=== PATIENT | female | born 1955 | race Caucasian/White ===

== ENCOUNTER 2023-04-19 12:18 | Emergency (ER) | payer MEDICARE, OTHER, SELFPAY ==
--- NOTE | ~2023-04-19 | CT_ITS ---
EXAMINATION: CT HEAD WITHOUT CONTRAST CLINICAL INFORMATION: Confusion. COMPARISON: None. TECHNIQUE: Contiguous axial imaging was performed from the skullbase to vertex without intravenous administration of contrast. This CT examination was performed using dose optimization techniques as appropriate, variously including the following: *Automated exposure control *Adjustment of mA and/or kV according to patient size (this includes techniques or standardized protocols for targeted exams where dose is matched to indication/reason for exam; i.e. extremities or head) *Use of iterative reconstruction technique DLP: 654 mGy-cm. FINDINGS: There is no evidence of acute intracranial hemorrhage or territorial infarction. No abnormal mass effect or midline shift is seen. Penny to white matter differentiation is well preserved. No extra-axial fluid collections are identified. The ventricles are normal in size. There is no abnormal attenuation within the brain parenchyma. The osseous structures and soft tissues are normal. The mastoid air cells and visualized portions of the paranasal sinuses are well aerated. CT/CT head/brain wo IV con IMPRESSION: No acute intracranial pathology.
[2023-04-19 12:29] VITALS: BP 136/75; PULSE 99; RESP 18; TEMP 35.9; O2SAT 99; BMI 27.1
--- NOTE | 2023-04-19 12:31 | ED_ITS ---
HPI - General Adult General Chief complaint: Neuro Symptoms/Deficit Stated complaint: loss of memory ? Time Seen by Provider: 04/19/23 20:54 Source: patient and other (Significant other) Mode of arrival: ambulatory Limitations: no limitations History of Present Illness HPI narrative: 67-year-old female with hypercholesterolemia, hypothyroidism presents with memory loss. Patient had confusional episode where she was unable to remember several events to out the day. She woke up in apparently in a normal state of health. She appeared to be somewhat confused as to certain events that had happened. She went for walk with her significant other. She had a conversation with a teacher she is to work with. However, she does not remember even needing this particular teacher name Eliot. She does not remember the conversation. She returned home and had memory loss related to some work that was done at the house as well. She never had any focal neurologic deficits. There is no receptive or expressive aphasia. There were no other significant symptoms. Her significant other recommended that she come to the hospital. There are several vents that took place since her period of waiting in the emergency department that she does not remember. However, per patient and her significant other, she is currently at her baseline mental status. Patient has never had symptoms like this before. The symptoms are described as severe. There is no clear relieving or exacerbating features. Related Data Allergies Allergy/AdvReac Type Severity Reaction Status Date / Time No Known Allergies Allergy Unverified 08/19/22 15:45 [No Known Allergies*] Review of Systems 2 Review of Systems: CONSTITUTIONAL: Denies weight loss, fever and chills. HEENT: Denies changes in vision and hearing. RESPIRATORY: Denies SOB and cough. CV: Denies palpitations no CP. GI: Denies abdominal pain, nausea, vomiting and diarrhea. : Denies dysuria and urinary frequency. MSK: Denies myalgia and joint pain. SKIN: Denies rash and pruritus. NEUROLOGICAL: Denies headache and syncope. PSYCHIATRIC: Denies recent changes in mood. Denies anxiety and depression. All other ROS are negative unless in HPI PMFSH Social History Social History Alcohol intake: never Smoked in Last 30 Days: No Use of substances other than those prescribed or required for medical reasons: Unable to respond Advance Directives: No Advance Directives Information Provided: No Physical Exam ED Vital Signs: Vital Signs - 24 hr 04/19/23 12:29 04/19/23 20:55 Temperature 96.6 F L 98.1 F Pulse Rate 99 71 Respiratory Rate 18 17 Blood Pressure 136/75 129/63 Pulse Oximetry 99 97 Oxygen Delivery Method Room Air BMI result Body Mass Index 27.1 GEN: Well developed, no acute distress, alert, oriented HEENT: Normocephalic, atraumatic, normal external ears, nose appears normal, no oropharyngeal edema or exudates Eyes: Normal to appearance Neck: Supple, no lymphadenopathy Respiratory: Talks in complete sentences, no respiratory distress, clear to auscultation bilaterally Cardiovascular: Regular rate and rhythm, no murmurs rubs or gallops Abdomen: Soft, nontender, nondistended, no guarding, no rebound Back: No CVA tenderness Extremities: No clubbing cyanosis or edema Neurologic: No focal neurologic deficits, cranial nerves 2-12 intact, strength is 5/5 bilaterally, no pronator drift, [id number] intact Skin: No rash Course Course Course Narrative: This is an RME: Additional HPI, ROS, PE not included below will be deferred to primary provider. This is a [id number], with a hx of hypothyroidism, presenting to the ER with complaints of memory problems. Pt reporting that she is feeling confused. Reporting today is just a blur . Partner states that when she woke up this morning she was goofy not remembering how things got into the place that it is at. Unknown last well time. Pt reporting no vision problems, head trauma, falls. Recent diagnosis of hypothyroidism. No history of TIA or CVA. She is not on blood thinners. Plan: CT head, labs, UA Reevaluation(s) Reevaluation #1: Workup is complete. There are no significant abnormalities. This is likely a diagnosis of transient global amnesia. She can follow up with primary care provider for routine follow-up. Patient may warrant Neurologic evaluation by a neurologist but this can be done as an outpatient. For recurrent symptoms, they were instructed to return to the emergency department. Time: 21:12 Medical Decision Making Medical Decision Making MDM Narrative: Patient presents with memory loss. Neurologically, patient is intact. Differential diagnosis includes transient global amnesia, confusion, UTI, electrolyte abnormality, TIA, CVA. Most likely this is transient global amnesia. Routine evaluation and CT scan of the head was already initiated. Follow-up on results. There is no obvious treatment at this time. Disposition is pending full workup. Possible admission may be warranted. Differential Diagnosis Differential Diagnoses: The differential diagnosis associated with the presentation includes (See above) Admission/Observation Consideration of admission/observation: Escalation of care including admission/observation considered Lab Data MDM Lab Attestation statement: I reviewed the patient's lab results. 04/19/23 12:57 04/19/23 12:57 Labs: Lab Results 04/19/23 Range/Units 12:57 WBC 9.1 (4.8-10.8) X10*3/uL RBC 4.40 (4.20-5.50) X10*6/uL Hgb 14.3 (12.0-16.0) g/dl Hct 42.2 (37.0-47.0) % MCV 95.9 (80.0-98.0) fL MCH 32.5 (27.0-33.0) pg MCHC 33.9 (31.0-35.0) g/dl RDW 12.0 (11.0-16.0) % Plt Count 211 (160-400) X10*3/uL MPV 10.5 (9.4-12.3) fL Immature Gran % (Auto) 0.3 (0.0-0.4) % Neut % (Auto) 75.7 H (45-73) % Lymph % (Auto) 15.7 L (20-40) % [place] % (Auto) 6.9 (2-11) % Eos % (Auto) 0.7 (0-4) % Baso % (Auto) 0.7 (0-2) % Lymph # (Auto) 1.4 (1.2-4.9) X10*3/uL [place] # (Auto) 0.6 (0.1-1.2) X10*3/uL Eos # (Auto) 0.1 (0.0-0.4) X10*3/uL Baso # (Auto) 0.1 (0.0-0.2) X10*3/uL Abs Immat Gran (auto) 0.03 (0.00-0.03) X10*3/uL Absolute Neuts (auto) 6.9 (2.0-8.3) x10*3/uL Absolute Nucleated RBC 0.000 (0.0-0.012) X10*3/uL Nucleated RBC % (auto) 0.0 (0.0-0.2) /100WBC Sodium 140 (135-145) mmol/L Potassium 4.1 (3.3-5.1) mmol/L Chloride 109 H (96-108) mmol/L Carbon Dioxide 19 L (22-29) mmol/L Anion Gap 16 (12-20) BUN 13 (9-16) mg/dL Creatinine 0.74 (0.5-1.4) mg/dL Estim Creat Clear Calc 82.3 Estimated GFR > 60 Random Glucose 103 (60-115) mg/dL Calcium 10.4 H (8.4-10.2) mg/dL Total Bilirubin 0.5 (0.0-1.0) mg/dL Direct Bilirubin 0.2 (0.0-0.5) mg/dL AST 18 (5-31) U/L ALT 18 (0-31) U/L Alkaline Phosphatase 64 (39-117) U/L Total Protein 7.3 (6.5-8.0) g/dL Albumin 4.6 (3.5-5.0) g/dL TSH 1.45 (0.32-4.0) uIU/mL Urine Color Yellow Urine Appearance Clear Urine pH 7.0 (5.0-9.0) Ur Specific [place] <= 1.005 (1.005-1.025) Urine Protein Negative (Neg-Trace) mg/dL Urine Glucose (UA) Negative (Negative) mg/dL Urine Ketones 15 (Negative) mg/dL Urine Blood Small (1+) H (Negative) Urine Nitrite Negative (Negative) Ur Leukocyte Esterase Negative (Negative) Urine RBC 6-10 H (0-2) /HPF Urine WBC 0-5 (0-5) /HPF Ur Squamous Epith Cells 0-2 (0-2) /HPF Urine Bacteria None Seen (None Seen) Hyaline Casts 0-2 (0-2) /LPF Independent Interpretation I performed an independent interpretation of an: CT Scan (head: NAD) Radiology Impression Discussion of test interpretation with radiology: I have reviewed the radiologist's reading. Radiologist Impression: CT/CT head/brain wo IV con IMPRESSION: No acute intracranial pathology. Dictated By: JODI KENNEDY MD Signed By: <Electronically signed by JODI KENNEDY MD in OV> 04/19/23 1311 Prescription Management I considered prescription management with: Antibiotic Chronic Conditions Patient?s care impacted by: Other (Hypothyroidism, hypercholesterolemia) Discharge Plan Discharge Clinical Impression: Transient global amnesia Patient Disposition: Home, Self-Care Instructions: Transient Global Amnesia (ED) Referrals: Physician,Unknown J [Primary Care Provider] - (Primary care provider within 1 week)
[2023-04-19 13:02] LABS: MANUAL DIFF FLAG NO
[2023-04-19 13:03] LABS: Basophils Absolute Auto 0.1 X10*3/uL (0.0-0.2); Basophils Percent Auto 0.7 % (0-2); Eosinophils Absolute Auto 0.1 X10*3/uL (0.0-0.4); Eosinophils Percent Auto 0.7 % (0-4); Hematocrit 42.2 % (37.0-47.0); Hemoglobin 14.3 g/dl (12.0-16.0); Imm Gran Abs Auto 0.03 X10*3/uL (0.00-0.03); Imm Gran Pct Auto 0.3 % (0.0-0.4); Lymphocytes Absolute Auto 1.4 X10*3/uL (1.2-4.9); Lymphocytes Percent Auto 15.7 % (20-40); Mean Corpuscular HGB Conc 33.9 g/dl (31.0-35.0); Mean Corpuscular Hemoglobin 32.5 pg (27.0-33.0); Mean Corpuscular Volume 95.9 fL (80.0-98.0); Mean Platelet Volume 10.5 fL (9.4-12.3); Monocytes Absolute Auto 0.6 X10*3/uL (0.1-1.2); Monocytes Percent Auto 6.9 % (2-11); Neutrophils Absolute Auto 6.9 x10*3/uL (2.0-8.3); Neutrophils Percent Auto 75.7 % (45-73); Platelet Count 211 X10*3/uL (160-400); White Blood Count 9.1 X10*3/uL (4.8-10.8)
[2023-04-19 13:04] LABS: Appearance Urine Clear; Color Urine Yellow; Glucose Urine UA Negative (Negative); Leukocyte Esterase Urine Negative (Negative); Nitrite Urine Negative (Negative); Specific Gravity - Urine <= 1.005 (1.005-1.025); UMIC TRIGGER UACC YES; Urine Blood Small (1+) (Negative); Urine Ketones 15 mg/dL (Negative); Urine Protein Negative (Neg-Trace)
[2023-04-19 13:07] LABS: Bacteria Urine None Seen (None Seen); Hyaline Casts Urine 0-2 /LPF (0-2); Squamous Epithelial Cell Urine 0-2 /HPF (0-2); WBC Urine 0-5 /HPF (0-5)
[2023-04-19 13:35] LABS: Alanine Aminotransferase 18 U/L (0-31); Albumin Level 4.6 g/dL (3.5-5.0); Alkaline Phosphatase 64 U/L (39-117); Anion Gap 16 (12-20); Aspartate Amino Transferase 18 U/L (5-31); Bilirubin Direct 0.2 mg/dL (0.0-0.5); Bilirubin Total 0.5 mg/dL (0.0-1.0); Blood Urea Nitrogen 13 mg/dL (9-16); Calcium 10.4 mg/dL (8.4-10.2); Carbon Dioxide 19 mmol/L (22-29); Chloride 109 mmol/L (96-108); Creatinine Clr Calc Pharmacy 82.3; Estimated Glomerular Filt Rate > 60; Glucose Random 103 mg/dL (60-115); Potassium 4.1 mmol/L (3.3-5.1); Sodium 140 mmol/L (135-145); Total Protein 7.3 g/dL (6.5-8.0)
[2023-04-19 13:48] LABS: TSH reflex Free T4 1.45 uIU/mL (0.32-4.0)
[2023-04-19 20:55] VITALS: BP 129/63; PULSE 71; RESP 17; TEMP 36.7; O2SAT 97
== END 2023-04-19 21:23 | disposition home or self-care (01) ==
PROVIDERS: Physician Assistant Medical; Emergency Provider Emergency Medicine
DX: G45.4 Transient global amnesia (principal); Z79.899 Other long term (current) drug therapy
CPT/HCPCS: 36415; 70450; 80048; 80076; 81001; 84443; 85025; 99284

== ENCOUNTER 2023-07-10 09:11 | Outpatient (AMB) | payer MEDICARE, OTHER, SELFPAY ==
--- NOTE | 2023-07-10 09:13 | AM.OFFWIN_ITS ---
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, puffy eyes, cough (masked) Intake Note: pt is here for c/o ear ache right ear, puffy eyes, nose is sore, cough Patient Tobacco Use Status: Former Tobacco user Allergies No Known Allergies [No Known Allergies*] Allergy (Verified 07/10/23 09:22) Medication List - Last Reconciled 07/10/23 by Divina Alfaro PA-C amoxicillin 875 mg PO BID thyroid (pork) ([place] Thyroid) 30 mg PO DAILY Do you need a note to return to daycare/school/sports/work: No HPI HPI Comments History of Present Illness Details Patient presents with R ear pain Worsening since last night he has congestion, cough, sinus pressure Cough was productive of yellow + puffy eyes R ear pain is 6/10 No drainage She tried warm compress which helped She tried cough mediine with some relief No CP or SOB PFSH Social History Alcohol intake: never Patient Tobacco Use Status: Former Tobacco user Review of Systems Const Denies body aches and Denies fever(s) Eyes Denies blurry vision ENT Denies ear discharge, Reports otalgia, Reports nasal congestion, Reports sinus pressure and Denies throat swelling Card Denies chest pain and Denies dyspnea Resp Reports cough and Denies dyspnea Aller/Immun Denies throat swelling Physical Exam Vital Signs: Last Vital Signs Temp 98.2 F 07/10/23 09:20 Pulse 79 07/10/23 09:20 BP 110/62 07/10/23 09:20 Pulse Ox 98 07/10/23 09:20 Oxygen Delivery Method Room Air 07/10/23 09:20 BMI result Body Mass Index 27.2 General: Non-toxic, NAD. Speaking full sentences. Skin: Warm dry throughout Eye: EOMI HENT: Airway patent. Uvula midline. No pharyngeal erythema or edema. No STUDENT MINISTRY PASTOR. Bilateral canals clear. L TM non-erythematous, non-bulging. R TM + erythematous with slight bulge. No TM perforation or hemotympanum noted. Respiratory: CTA bilaterally. No wheezes, rales or rhonchi Cardiac: RRR. No murmur MSK: Full ROM extremities. Neurology: A/O. No aphasia or facial droop. Gait without abnormality Psych: Good mood and affect Assessment & Plan Assessment & Plan (1) Otitis media: Code(s): H66.90 - Otitis media, unspecified, unspecified ear Qualifiers: Chronicity: acute Laterality: right Otitis media type: suppurative Recurrence: non-recurrent Spontaneous tympanic membrane rupture: without spontaneous rupture Qualified Code(s): H66.001 - Acute suppurative otitis media without spontaneous rupture of ear drum, right ear Plan Patient seen and evaluated. + R OM on exam No OE Amoxicillin with food F/U with PCP ER if worsening symptoms Lung CTA Patient gave verbal understanding and had no additional questions or concerns at time of discharge All questions answered Medications: New amoxicillin 875 mg PO BID 14 tabs 0RF H66.90 - Otitis media, unspecified, unspecified ear Coding Level of Care Code New Pt Level 3 (75733) Diagnoses Non-recurrent acute suppurative otitis media of right ear without spontaneous rupture of tympanic membrane H66.001 Chronicity: acute Laterality: right Otitis media type: suppurative Recurrence: non-recurrent Spontaneous tympanic membrane rupture: without spontaneous rupture
[2023-07-10 09:20] VITALS: BP 110/62; PULSE 79; TEMP 36.8; O2SAT 98; BMI 27.2
== END 2023-07-10 10:31 | disposition home or self-care (01) ==
PROVIDERS: PCP Internal Medicine; Visit Provider Physician Assistant
DX: H66.001 Acute suppurative otitis media without spontaneous rupture of ear drum, right ear (principal)
CPT/HCPCS: 99203